=== PATIENT | male | born 1950 | race Two or more races ===

== ENCOUNTER 2017-12-21 17:47 | Emergency (ER) | payer MEDICARE, OTHER ==
[~2017-12-21] VITALS: Ht 182.9 cm; Wt 90.7 kg
[2017-12-21] MEDS ORDERED: CLEOCIN HCL300 MG PO (18:45)
[2017-12-21] MEDS ORDERED: NORCO 5-325 TA1 EACH PO (18:45)
[2017-12-21] MEDS ORDERED: IBUPROFEN600 MG PO (18:45)
== END 2017-12-21 20:06 | disposition home or self-care (01) ==
LOC: ED 17:47
PROC: 0H97XZZ Drainage of Abdomen Skin, External Approach (ICD-10-PCS; principal; 2017-12-21)
DX: L02.214 Cutaneous abscess of groin (principal)
CPT/HCPCS: 10060; 96374; 99283